=== PATIENT | male | born 1955 | race Caucasian/White ===

== ENCOUNTER 2017-01-12 10:38 | Day surgery (SDC) | payer OTHER ==
[2017-01-08 11:10] VITALS: BMI 30.2
[~2017-01-12 10:38] MED LIST: LACTATED RINGERS 1,000 ML IV SCH; LIDOCAINE 1% 20 ML VIAL (10MG/ML) FOR IV START INTRADERMA PRN
[2017-01-12 10:50] VITALS: TEMP 97.2
[2017-01-12 10:56] LABS: Glucose,Whole Blood 112 mg/dL (75-99)
[2017-01-12] MEDS ORDERED: LIDOCAINE 1% INJ 10MG/ML (20 ML MDV) ONE (11:23)
[2017-01-12] MEDS ORDERED: GLYCOPYRROLATE 0.2 MG/ML 2 ML VIAL ONE (11:23)
[2017-01-12] MEDS ORDERED: PROPOFOL 10 MG/ML 20 ML VIAL IV ONE (11:23)
--- NOTE | 2017-01-12 11:39 | P.GSHP ---
History of Present Illness H&P Date: 01/12/17 Chief Complaint: GI bleed This a 61-year-old male who presents today for colonoscopy. He's had issues with rectal bleeding. He has a history of hemorrhoids. Past Medical History Past Medical History: Hyperlipidemia, Hypertension Additional Past Medical History / Comment(s): CHRONIC BACK PAIN, Ankylosing spondylosis History of Any Multi-Drug Resistant Organisms: None Reported Past Surgical History: Ear Surgery Additional Past Surgical History / Comment(s): umbilical hernia, hiatal hernia. Past Anesthesia/Blood Transfusion Reactions: No Reported Reaction Past Psychological History: No Psychological Hx Reported Smoking Status: Never smoker Past Alcohol Use History: None Reported Past Drug Use History: None Reported - Past Family History Mother Family Medical History: Cancer Medications and Allergies Home Medications Medication Instructions Recorded Confirmed Type Adalimumab [Humira] 40 mg SQ [id number] 01/04/14 01/12/17 History Aspirin 81 mg PO DAILY 01/04/14 01/08/17 History Cholecalciferol [Vitamin D3] 2,000 units PO DAILY 01/04/14 01/12/17 History Gabapentin 800 mg PO TID 01/04/14 01/12/17 History Ibuprofen [Motrin] 800 mg PO Q8HR PRN 01/04/14 01/08/17 History Losartan/Hydrochlorothiazide 1 tab PO DAILY 01/04/14 01/12/17 History [Losartan-Hctz 100-12.5 mg Tab] Metoprolol Tartrate [Lopressor] 1 tab PO BID 01/04/14 01/12/17 History Multivitamin/Iron/Folic Acid 1 tab PO DAILY 01/04/14 01/08/17 History [Centrum Complete Multivit Tab] amLODIPine/ATORVASTATIN [Caduet 10 1 tab PO HS 01/04/14 01/12/17 History mg-80 mg Tablet] Folic Acid 1 mg PO DAILY 02/23/16 01/12/17 History Methotrexate Sodium [Methotrexate] 5 tab PO FR 02/23/16 01/12/17 History Testosterone (Unknown Dose) 1 dose Q21D 01/08/17 01/12/17 History Allergies Allergy/AdvReac Type Severity Reaction Status Date / Time No Known Allergies Allergy Verified 01/12/17 10:47 Surgical - Exam Vital Signs Temp Pulse Resp BP Pulse Ox 97.2 F L 58 L 16 161/92 99 01/12/17 10:49 01/12/17 10:49 01/12/17 10:49 01/12/17 10:49 01/12/17 10:49 - General well developed, no distress - Eyes PERRL - ENT normal pinna - Neck no masses - Respiratory normal expansion - Cardiovascular Rhythm: regular - Abdomen Abdomen: soft, non tender Results - Labs Abnormal Lab Results - Last 24 Hours (Table) 01/12/17 Range/Units 10:53 POC Glucose (mg/dL) 112 H (75-99) mg/dL Assessment and Plan Plan: GI bleed Hemorrhoids We'll perform colonoscopy.
--- NOTE | 2017-01-12 11:55 | P.OP ---
Date of Procedure: 01/12/17 Preoperative Diagnosis: GI bleed Postoperative Diagnosis: Mild internal and external hemorrhoids Procedure(s) Performed: Colonoscopy Implants: Anesthesia: MAC Surgeon: Ted Medina Pathology: none sent Condition: stable Disposition: PACU Indications for Procedure: Operative Findings: Description of Procedure: The patient's placed on the endoscopy table in the lateral position. He received IV sedation. The digital rectal exam was performed which revealed a few internal and external hemorrhoids. The prostate was symmetric without nodules. The flexible colonoscope was then placed patient anus passed throughout the entire colon. The ileocecal valve was visualized. The cecum, ascending colon, transverse colon and descending colon appeared normal. Scope was then brought back the sigmoid colon this appeared normal. Scope was then brought back the rectum and this appeared normal. Scope was then withdrawn through the anus and there were minimal internal and external hemorrhoids noted. Scope was withdrawn for patient.
[2017-01-12 12:01] VITALS: RESP 18
[2017-01-12 12:32] VITALS: BP 131/74; PULSE 66
== END 2017-01-12 12:05 | disposition home or self-care (01) ==
LOC: ORWHC2ENDO 10:38
PROVIDERS: ATTEND Surgery
DX: K64.8 Other hemorrhoids (principal); K64.4 Residual hemorrhoidal skin tags; K92.2 Gastrointestinal hemorrhage, unspecified; I10 Essential (primary) hypertension; E78.5 Hyperlipidemia, unspecified; G89.29 Other chronic pain; M54.9 Dorsalgia, unspecified; M45.9 Ankylosing spondylitis of unspecified sites in spine; Z79.82 Long term (current) use of aspirin; Z79.899 Other long term (current) drug therapy
CPT/HCPCS: 45378; J2001; J2704

== ENCOUNTER → 2018-07-20 | Day surgery (SDC) | payer OTHER ==
[2018-07-18 09:45] VITALS: BMI 30.2
[~2018-07-20] MED LIST changes: +ALPRAZolam 0.25 MG TAB PO PRN; +ALPRAZolam 0.5 MG TAB PO PRN; +ASPIRIN 325 MG TAB PO STA; +ASPIRIN 81 MG PO SCH; +ATORVASTATIN 80 MG TAB PO SCH; +ATORVASTATIN 80 MG TAB PO STA; +CHOLECALCIFEROL 1,000 UNIT TAB PO SCH; +GABAPENTIN 800 MG PO SCH; +HEPARIN SODIUM 1,000 UN/ML (10ML VL) IV ONE; +HEPARIN SODIUM 1,000 UN/ML (10ML VL) ONE; +HUMIRA 40 MG SQ SCH; +IOPAMIDOL-370 125ML BTL INJ ONE; -LACTATED RINGERS 1,000 ML IV SCH; -LIDOCAINE 1% 20 ML VIAL (10MG/ML) FOR IV START INTRADERMA PRN; +LIDOCAINE 1% INJ 10MG/ML (20 ML MDV) ONE; +LIDOCAINE 1% INJ 10MG/ML (20 ML MDV) SQ ONE; +METOPROLOL TARTRATE 50 MG TAB PO SCH; +NITROGLYCERIN SL TABS 0.4 MG TAB SUBLINGUAL PRN; +NON-FORMULARY DRUG (Losartan/Hydrochlorothiazide [Losartan-Hctz 100-12.5 Mg Tab] 1 TAB) PO SCH; +RX INFO: IV CONTRAST WAS GIVEN 1 EACH MISC MISCELLANE PRN; +SODIUM CHLORIDE 0.9% 1,000 ML IV SCH; +SODIUM CHLORIDE 0.9% 1,000 ML in EMPTY BAG 1 BAG IV ONE; +VERAPAMIL 2.5 MG/ML 2 ML AMP ONE; +VERAPAMIL SYRINGE (5 MG/10 ML) IVP ONE; +amLODIPine 10 MG TAB PO SCH; +fentaNYL (PF) 50 MCG/ML 2 ML AMP IVP ONE; +fentaNYL (PF) 50 MCG/ML 2 ML AMP ONE
[2018-07-20 11:25] VITALS: TEMP 97.7
[2018-07-20 15:24] VITALS: RESP 18
[2018-07-20 15:25] VITALS: BP 146/78; PULSE 78
--- NOTE | 2018-07-20 18:42 | CC ---
CARDIAC CATHETERIZATION REPORT Mr. Jacobson is a 63-year-old male with known history of hypertension and hyperlipidemia who has been complaining of dyspnea on exertion. He underwent myocardial perfusion imaging that revealed partial reversible apical and inferior wall defect. In view of that, recommendation was made regarding cardiac catheterization. The procedure, its risks and complications were discussed with the patient, who was in full understanding and agreement. PROCEDURE: Patient was brought to the lab manager in a fasting, semi-sedated state after receiving fentanyl and Benadryl and achieving moderate conscious sedated state. Using Xylocaine anesthesia and Seldinger technique, a 6-Grenadian sheath was introduced in the right radial artery. Selective right and left angiography was performed using 5-Grenadian 3-1/2 Bend right and left Abena catheters. Multiple views were taken of the coronary arteries, including hemiaxial views. Following that, a 5-Grenadian tight pigtail catheter was introduced in the left ventricle and a 30-degree GRIFFITH view of the left ventricle was obtained. Following that, catheter and sheaths were removed. Hemostasis was obtained with deployment of a TR band. There was no immediate complication. Patient was returned to his room in stable condition. Of note, the patient received 5000 units of intravenous heparin as well as intra-arterial verapamil. FINDINGS: FLUOROSCOPY: There was mild calcification involving the left anterior descending artery. LEFT MAIN: This is a short-sized vessel bifurcating into left circumflex, left anterior descending artery. Left main coronary artery has no evidence of high-grade stenosis. LEFT ANTERIOR DESCENDING ARTERY: This is a large-sized vessel reaching toward the apex. It tapers down in the distal third. The left anterior descending artery gives rise to 2 small diagonal branches. Left anterior descending artery and its branches have no evidence of obstructive coronary artery disease. LEFT CIRCUMFLEX: This is a nondominant large vessel giving rise to 4 obtuse marginal branches. The third and fourth obtuse marginal branches are the largest and they have no evidence of high-grade stenosis. RIGHT CORONARY ARTERY: This is a dominant vessel, large in caliber, bifurcating distally into PDA and posterolateral segment and branches. The right coronary artery PDA reaches toward the inferoapical wall. It has mild plaque in the proximal segment of 20%. The rest of the vessel has no high-grade stenosis. LEFT VENTRICULOGRAM: Left ventriculogram was performed in 30-degree GRIFFITH view and revealed a normal left ventricular size and systolic function. Ejection fraction is 60%. There was no significant mitral regurgitation. HEMODYNAMICS: There was no gradient across the aortic valve. The left ventricular end- diastolic pressure was 16-20 mmHg. CONCLUSION: 1. Mildly calcified left anterior descending artery. 2. Mild disease in the right coronary artery in the mid segment. 3. Normal left ventricular size and systolic function. RECOMMENDATION: In view of findings and anatomy, I have recommended continued medical therapy with the aggressive coronary risk modifications that have been initiated. Those findings and recommendation were discussed with the patient and his family, and they are in full understanding and agreement. Duration of procedure was 16 minutes. MMODL / IJN: [id number] /
== END | disposition home or self-care (01) ==
LOC: CATHCVL 10:52
PROVIDERS: ATTEND Internal Medicine Interventional Cardiology
DX: I25.10 Atherosclerotic heart disease of native coronary artery without angina pectoris (principal); E78.2 Mixed hyperlipidemia; I10 Essential (primary) hypertension; Z82.49 Family history of ischemic heart disease and other diseases of the circulatory system; Z79.82 Long term (current) use of aspirin; Z79.899 Other long term (current) drug therapy
CPT/HCPCS: 93458; C1894; C1769; J2001; J3010; J1644; Q9967

== ENCOUNTER → 2019-01-18 | Outpatient (CLI) | payer OTHER ==
--- NOTE | 2019-01-18 10:17 | US ---
EXAMINATION TYPE: US abdomen complete DATE OF EXAM: 01/18/2019 COMPARISON: NONE CLINICAL HISTORY: R74.0 Elevated labs; R53.83 fatigue; M45.9 spondyl. EXAM MEASUREMENTS: Liver Length: 14.9 cm Gallbladder Wall: 0.2 cm CBD: 0.3 cm Spleen: 11.2 cm Right Kidney: 11.9 x 5.3 x 5.4 cm Left Kidney: 11.8 x 4.6 x 5.0 cm Patient of large body habitus carrying most of his weight in a large abdomen. Patient also had severe overlying bowel gas. Technically difficult and limited study. Pancreas: Obscured by bowel gas Liver: limited views, attenuating Gallbladder: cholelithiasis, possible sludge, limited visualization Evidence for sonographic Kimbrough's sign: no CBD: limited visualization Spleen: wnl Right Kidney: lateral hypoechoic nodule measuring 1.2 x 1.0 x 1.1cm Left Kidney: irregular contour Upper IVC: not seen Abd Aorta: seen only mid, mid wnl IMPRESSION: 1. Liver is increased in attenuation correlate for hepatic steatosis, hepatitis or diffuse hepatocell ular disease. 2. Cholelithiasis with gallbladder sludge but no gallbladder wall thickening. 3. Hypoechoic nodule right kidney too small to characterize by ultrasound. 4. there is cortical loss and lobulation of the left kidney correlate for chronic medical renal disea se.
== END | disposition home or self-care (01) ==
LOC: RADUSWWP 09:17
PROVIDERS: ATTEND Family Medicine
DX: R93.2 Abnormal findings on diagnostic imaging of liver and biliary tract (principal); K80.20 Calculus of gallbladder without cholecystitis without obstruction; N28.9 Disorder of kidney and ureter, unspecified; R53.83 Other fatigue; R74.0 Nonspecific elevation of levels of transaminase and lactic acid dehydrogenase [LDH]
CPT/HCPCS: 76700

== ENCOUNTER → 2019-02-21 | Outpatient (CLI) | payer OTHER ==
--- NOTE | 2019-02-21 09:14 | CT ---
EXAMINATION TYPE: CT abdomen w con DATE OF EXAM: 02/21/2019 COMPARISON: Abdominal ultrasound dated 01/18/2019 HISTORY: Left sided flank pain CT DLP: 1349 mGycm Automated exposure control for dose reduction was used. TECHNIQUE: Helical acquisition of images was performed from the lung bases through the top of iliac crest to include entire abdomen. CONTRAST: Performed with Oral Contrast and with IV Contrast, patient injected with 100 mL of Isovue 300. FINDINGS: LUNG BASES: Bibasilar subsegmental dependent atelectasis is present. There is a subsolid pulmonary no dule the right middle lobe measuring 4 mm on image 6. No priors available for comparison to determine stability. LIVER/GB: Hepatic parenchyma is diffusely hypoattenuated in comparison to that of the spleen, most co mmonly seen in hepatic steatosis. This finding limits evaluation for hepatic masses. No gross evidenc e of hepatic mass is seen. No intrahepatic biliary ductal dilatation. Cholelithiasis is present. PANCREAS: No significant abnormality is seen. SPLEEN: No significant abnormality is seen. ADRENALS: No significant abnormality is seen. KIDNEYS: There is a lobulated contour of both kidneys suggestive of prior scarring. Nonobstructing le ft lower pole 5 mm calculus is seen. Hypoattenuated subcentimeter probable left renal cyst is present as well as a 1.2 cm right renal cyst. No hydronephrosis of either kidney. On delayed images punctate to small to accurately characterize bilateral cortical renal lesions are seen. BOWEL: Surgical changes seen of the gastric esophageal junction. Epiploic appendage is seen along th e distal descending colon versus omental infarct. No significant fat stranding at this time. Few scat tered colonic diverticula are present without fat stranding. Appendix appears air-filled and within n ormal limits. No dilated large or small bowel. LYMPH NODES: No greater than 1 cm short axis lymph node is seen in the abdomen or pelvis. OSSEOUS STRUCTURES: Degenerative changes of the spine are moderate. Multiple Schmorl's nodes are pre sent. FREE AIR: No free air is visualized. OTHER: Abdominal aorta is of normal course and caliber. IMPRESSION: 1. EPIPLOIC APPENDAGE VERSUS OMENTAL INFARCT IS SEEN IN THE LEFT LOWER QUADRANT. THIS COULD ACCOUNT F OR THIS PATIENT'S LEFT FLANK PAIN HOWEVER NO CURRENT INFLAMMATORY FAT STRANDING IS PRESENT. 2. HEPATIC STEATOSIS AND CHOLELITHIASIS. NO CT EVIDENCE OF ACUTE CHOLECYSTITIS. 3. FEW SCATTERED COLONIC DIVERTICULA. 4. NONOBSTRUCTING LEFT LOWER POLE RENAL CALCULUS, RIGHT RENAL CYST, AND BILATERAL SUBCENTIMETER RENAL LESIONS THAT ARE TOO SMALL TO ACCURATELY CHARACTERIZE. 5. SUBSOLID 4 MM RIGHT LOWER LOBE PULMONARY NODULE. UTILIZED TO FURTHER ASSESS THE ENTIRETY OF THE TH ORAX.
== END | disposition home or self-care (01) ==
LOC: RADCTMAIN 07:44
PROVIDERS: ATTEND Family Medicine
DX: K76.0 Fatty (change of) liver, not elsewhere classified (principal); N20.0 Calculus of kidney; N28.1 Cyst of kidney, acquired; N28.9 Disorder of kidney and ureter, unspecified; K80.20 Calculus of gallbladder without cholecystitis without obstruction
CPT/HCPCS: 74160; Q9967

== ENCOUNTER → 2019-03-10 | Outpatient (CLI) | payer OTHER ==
--- NOTE | 2019-03-10 11:19 | CT ---
EXAMINATION TYPE: CT chest w con DATE OF EXAM: 03/10/2019 COMPARISON: CT abdomen 02/21/2019 HISTORY: Solitary pulmonary nodule CT DLP: 901 mGycm Automated exposure control for dose reduction was used. CONTRAST: CT scan of the chest is performed with IV Contrast, patient injected with 100 ml mL of Isovue 300. FINDINGS: LUNGS: The previously identified right middle lobe nodule measuring approximately 4 mm on axial image 33 is again noted. There are dependent atelectatic changes. No pleural effusion. No endobronchial le melany. No additional lung nodule. MEDIASTINUM: There are no greater than 1 cm hilar or mediastinal lymph nodes. No pericardial effusi on is seen. There is some mild coronary artery calcification AORTA: No additional significant abnormality is seen. The celiac axis shows luminal plaque proximall y, there is associated stenosis of the celiac axis. OTHER: Old posterior left rib fracture appears healed at the 10th rib on the left, there is callus f ormation. Liver shows low attenuation consistent with hepatic steatosis. Dependent foci of high atten uation in the gallbladder likely represent stones. Dense diverticulum associated with the colon. Post op changes are suspected at the gastroesophageal junction level, correlate with appropriate surgical history. IMPRESSION: Pulmonary nodule is confirmed, follow-up in 6-12 months is suggested. Cholelithiasis. Pr obable luminal plaque at the origin of the celiac axis with associated stenosis. Additional findings above.
== END | disposition home or self-care (01) ==
LOC: RADCTMAIN 06:58
PROVIDERS: ATTEND Family Medicine
DX: R91.1 Solitary pulmonary nodule (principal); I25.10 Atherosclerotic heart disease of native coronary artery without angina pectoris
CPT/HCPCS: 71260; Q9967

== ENCOUNTER → 2019-04-13 | Outpatient (CLI) | payer OTHER | END | disposition home or self-care (01) | LOC: CPPFTMAIN 07:29 | PROVIDERS: ATTEND Internal Medicine Critical Care Medicine | DX: I99.8 Other disorder of circulatory system (principal); R91.8 Other nonspecific abnormal finding of lung field | CPT/HCPCS: 94060; 94726; 94729 ==

== ENCOUNTER → 2020-04-15 | Outpatient (CLI) | payer OTHER ==
--- NOTE | 2020-04-15 12:24 | CT ---
EXAMINATION TYPE: CT chest w con DATE OF EXAM: 04/15/2020 COMPARISON: March 10, 2019 HISTORY: Pulmonary nodule CT DLP: 576.5 mGycm Automated exposure control for dose reduction was used. CONTRAST: CT scan of the chest is performed with IV Contrast, patient injected with 100 mL of Isovue 300. FINDINGS: LUNGS: Stable 4 mm right middle lobe pulmonary nodule is unchanged. No new pulmonary nodules seen. Matt bpleural fibrosis noted at the lung bases. MEDIASTINUM: There are no greater than 1 cm hilar or mediastinal lymph nodes. No pericardial effusi on is seen. Thoracic aorta is of normal caliber. The heart is enlarged. UPPER ABDOMEN: No significant abnormality appreciated. OTHER: No additional significant abnormality is seen. IMPRESSION: 1. Stable right middle lobe pulmonary nodule. Stability over a two-year timeframe should be documente d radiographically. Follow-up study in one year.
== END | disposition home or self-care (01) ==
LOC: RADCTMAIN 11:00
PROVIDERS: ATTEND Internal Medicine Critical Care Medicine
DX: R91.1 Solitary pulmonary nodule (principal)
CPT/HCPCS: 71260; Q9967

== ENCOUNTER → 2020-05-17 | Outpatient (CLI) | payer OTHER ==
[2020-05-17 12:51] LABS: HCT 54.6 % (39.0-53.0); HGB 17.9 gm/dL (13.0-17.5); MCH 31.8 pg (25.0-35.0); MCHC 32.8 g/dL (31.0-37.0); Mean Platelet Volume 7.9; Platelet Count 225 k/uL (150-450); RBC 5.63 m/uL (4.30-5.90); RDW 12.2 % (11.5-15.5); WBC 9.5 k/uL (3.8-10.6)
[2020-05-17 13:07] LABS: ALT 73 U/L (4-49); AST 59 U/L (17-59); African American GFR (CKD) >90 (>60 ml/min/1.73 sqM); Albumin 4.1 g/dL (3.5-5.0); Alkaline Phosphatase 60 U/L (38-126); Anion Gap 5 mmol/L; Blood Urea Nitrogen 18 mg/dL (9-20); Carbon Dioxide 28 mmol/L (22-30); Chloride 107 mmol/L (98-107); Glucose 79 mg/dL (74-99); Non-African American GFR(CKD) 80 (>60 ml/min/1.73 sqM); Potassium 4.6 mmol/L (3.5-5.1); Sodium 140 mmol/L (137-145); Total Bilirubin 1.1 mg/dL (0.2-1.3); Total Protein 7.3 g/dL (6.3-8.2)
[2020-05-17 13:10] LABS: Partial Thromboplastin Time 23.2 sec (22.0-30.0)
== END | disposition home or self-care (01) ==
LOC: LABPAT 11:44
PROVIDERS: ATTEND Orthopaedic Surgery
DX: Z01.818 Encounter for other preprocedural examination (principal); M17.12 Unilateral primary osteoarthritis, left knee; Z01.812 Encounter for preprocedural laboratory examination
CPT/HCPCS: 36415; 80053; 85027; 85610; 85730; 87070

== ENCOUNTER 2020-06-10 10:56 | Day surgery (SDC) | payer OTHER ==
[2020-06-07 10:22] VITALS: BMI 32.1
[~2020-06-10 10:56] MED LIST changes: +ACETAMINOPHEN TAB 500 MG TAB PO ONE; -ALPRAZolam 0.25 MG TAB PO PRN; -ALPRAZolam 0.5 MG TAB PO PRN; -ASPIRIN 325 MG TAB PO STA; -ASPIRIN 81 MG PO SCH; -ATORVASTATIN 80 MG TAB PO SCH; -ATORVASTATIN 80 MG TAB PO STA; -CHOLECALCIFEROL 1,000 UNIT TAB PO SCH; +DEXAMETHASONE SOD PHOSPHATE 4 MG/ML 1 ML VIAL IV ONE; +GABAPENTIN 300 MG CAP PO ONE; -GABAPENTIN 800 MG PO SCH; -HEPARIN SODIUM 1,000 UN/ML (10ML VL) IV ONE; -HEPARIN SODIUM 1,000 UN/ML (10ML VL) ONE; -HUMIRA 40 MG SQ SCH; +HYDROmorphone 0.5 MG/0.5 ML SYRINGE IVP PRN; -IOPAMIDOL-370 125ML BTL INJ ONE; -LIDOCAINE 1% INJ 10MG/ML (20 ML MDV) ONE; -LIDOCAINE 1% INJ 10MG/ML (20 ML MDV) SQ ONE; +MELOXICAM 7.5 MG TAB PO ONE; -METOPROLOL TARTRATE 50 MG TAB PO SCH; +MIDAZOLAM 2 MG/2 ML VIAL IV PRN; -NITROGLYCERIN SL TABS 0.4 MG TAB SUBLINGUAL PRN; -NON-FORMULARY DRUG (Losartan/Hydrochlorothiazide [Losartan-Hctz 100-12.5 Mg Tab] 1 TAB) PO SCH; +ONDANSETRON 4 MG/2 ML VIAL IVP ONE; +ROPIVACAINE 246.25 MG, EPINEPHrine 0.5 MG, KETOROLAC 30 MG, cloNIDine HCL/PF 80 MCG, WA... MISCELLANE ONE; -RX INFO: IV CONTRAST WAS GIVEN 1 EACH MISC MISCELLANE PRN; +SCOPOLAMINE 1.5MG/72HR PATCH TRANSDERM ONE; -SODIUM CHLORIDE 0.9% 1,000 ML IV SCH; -SODIUM CHLORIDE 0.9% 1,000 ML in EMPTY BAG 1 BAG IV ONE; +TRANEXAMIC ACID 1,000 MG in SODIUM CHLORIDE 0.9% 100 ML IVPB ONE; -VERAPAMIL 2.5 MG/ML 2 ML AMP ONE; -VERAPAMIL SYRINGE (5 MG/10 ML) IVP ONE; -amLODIPine 10 MG TAB PO SCH; -fentaNYL (PF) 50 MCG/ML 2 ML AMP IVP ONE; -fentaNYL (PF) 50 MCG/ML 2 ML AMP ONE
[2020-06-10] MEDS: LACTATED RINGERS 1,000 ML IV SCH (11:30)
[2020-06-10] MEDS ORDERED: LIDOCAINE 1% (10MG/ML) FOR IV START INTRADERMA ONE (11:31)
[2020-06-10] MEDS ORDERED: MIDAZOLAM 2 MG/2 ML VIAL IVP ONE (12:06)
[2020-06-10] MEDS ORDERED: fentaNYL (PF) 50 MCG/ML 2 ML AMP IVP ONE (12:06)
[2020-06-10] MEDS ORDERED: NA PHOS,M-B/NA PHOS,DI-BA 133 ML ENEMA RECTAL PRN (12:35)
[2020-06-10] MEDS ORDERED: hydrOXYzine pamoate 25 MG CAP PO PRN (12:35)
[2020-06-10] MEDS ORDERED: bisacodyL 10 MG SUPP RECTAL PRN (12:35)
[2020-06-10] MEDS ORDERED: HYDROcodone/APAP 5-325MG 1 EACH TAB PO PRN (12:35)
[2020-06-10] MEDS ORDERED: diazePAM 5 MG TAB PO PRN (12:35)
[2020-06-10] MEDS ORDERED: ONDANSETRON 4 MG/2 ML VIAL IVP PRN (12:35)
[2020-06-10] MEDS ORDERED: NALOXONE 0.4 MG/ML 1 ML VIAL IV PRN (12:35)
[2020-06-10] MEDS ORDERED: MAGNESIUM HYDROXIDE 2,400 MG/10 ML CUP PO PRN (12:35)
[2020-06-10] MEDS ORDERED: HYDROmorphone 1 MG/ML 1 ML SYRINGE IVP PRN (12:35)
[2020-06-10] MEDS ORDERED: HYDROmorphone 0.5 MG/0.5 ML SYRINGE IVP PRN ×2 (12:35)
--- NOTE | 2020-06-10 12:38 | P.ANPRN ---
Procedure Note - Anesthesia - Nerve Block Performed Left Adductor Canal Infusion Time Out Performed: Yes (1205) Date of Procedure: 06/10/20 Procedure Start Time: 12:06 Procedure Stop Time: 12:12 Location of Patient: PreOp Indication: Acute Post-Operative Pain, Requested by Surgeon Specifically requested for management of pain by DrColumba: Eliu Crespo Sedation Type: Sedate with meaningful contact maintained Preparation: Sterile Prep Position: Supine Catheter Depth at Skin (cm): 8 Catheter: Indwelling Needle Types: Pajunk Needle Gauge: 21 Ultrasound used to visualize needle placement: Yes Ultrasound used to observe medication spread: Yes Injectate: 0.5% Ropivacaine (see comment for volume) (20cc) Blood Aspirated: No Pain Paresthesia on Injection Noted: No Resistance on Injection: Normal Image Stored and Saved: Yes Events: Uneventful and Well Tolerated
[2020-06-10] MEDS ORDERED: TRANEXAMIC ACID 1,000 MG/10 ML VIAL ONE (13:04)
[2020-06-10] MEDS ORDERED: PROPOFOL 10 MG/ML 20 ML VIAL IV ONE (13:04)
[2020-06-10] MEDS ORDERED: MIDAZOLAM 2 MG/2 ML VIAL ONE (13:04)
[2020-06-10] MEDS ORDERED: SODIUM CHLORIDE 0.9% 100 ML BAG ONE (13:04)
[2020-06-10] MEDS ORDERED: fentaNYL (PF) 50 MCG/ML 2 ML AMP ONE (13:04)
[2020-06-10] MEDS ORDERED: ceFAZolin 3,000 MG in SODIUM CHLORIDE 0.9% IRRIGATIO 3,000 ML IRRIGATION ONE (13:09)
[2020-06-10] MEDS ORDERED: LACTATED RINGERS 1,000 ML IV ONE (14:37)
--- NOTE | 2020-06-10 14:47 | P.OP ---
Date of Procedure: 06/10/20 Preoperative Diagnosis: Severe osteoarthritis left knee Postoperative Diagnosis: Severe osteoarthritis left knee Procedure(s) Performed: Left total knee arthroplasty using [employer] patient specific guides Implants: Chowdary and Nephew Cruciate Retaining Journey II CR Oxinium Femoral Component size 8, left Chowdary & Nephew Journey Nonporous Tibial Baseplate size 6, left Chowdary [employer] Nephew Journey II CR, XLPE Articular Insert, 9 mm, size 5-6 Chowdary & Nephew Mary II Resurfacing Patellar Component, Oval, 35 mm All components were cemented using Palacose R bone cement. Visionaire patient specific guides The articulation is Oxinium on polyethylene. Anesthesia: spinal Surgeon: Eliu Crespo Refrigeration Mechanic Helper #1: Nadia Martin Estimated Blood Loss (ml): 50 Pathology: other (Bone and cartilage) Condition: stable Disposition: PACU Indications for Procedure: After failure of conservative treatment we discussed the surgical and nonsurgical treatment options at length. Patient wishes to proceed with a total knee arthroplasty. Complications specific to this procedure were discussed at length, including but not limited to infection, bleeding, stiffness, and nerve injury. Covid-19 was also discussed at length with the patient, and they are aware of the current policies and procedures. The patient was given the option of delaying surgery, but they elect to proceed knowing these risks. Patient is aware of all these complications and informed consent was obtained Operative Findings: The operative findings are consistent with severe osteoarthritis of the left knee Description of Procedure: Patient was seen in the preoperative area consent was reviewed and operative site was marked with a skin marker. An adductor canal pain catheter was placed by anesthesia in the preoperative area. Patient was then brought to the operating room and given preoperative antibiotics intravenously. A spinal anesthetic was administered by the anesthesia department. A tourniquet was placed on the upper thigh and the lower extremity was prepped and draped in usual sterile fashion. A gram of transexamic acid was given. A universal timeout was then performed which confirmed the patient's name, surgical site, ALLERGIES, and consent. The lower extremity was then exsanguinated and tourniquet was inflated to 250 mmHg. A standard and anterior midline approach to the knee was performed. The skin and subcutaneous tissue was dissected down to the patellar tendon. A medial parapatellar arthrotomy was then performed. The knee was then extended, the patellar was everted, and the knee was again flexed. Anterior horns of both menisci were excised, and a release was performed to the posterior medial aspect of the knee. On gross visual inspection, there was complete loss of articular cartilage in the medial and patellofemoral joint spaces. There was also significant cartilage damage in the lateral compartment. There were multiple periarticular osteophytes. The patient specific guide was placed on the distal femur, and pinned in place. Using the patient specific guide, the distal femoral cut was performed. The cutting block was then removed and the cut was checked for flatness. The appropriate 5-in-1 cutting block was then pinned in place through the holes that were drilled through the patient specific guide. The anterior condyles were cut without notching. The posterior and chamfer cuts were performed while protecting the collateral ligaments. The cutting block was then removed. Attention was then directed to the tibia. The remaining ACL was removed with a Ronguer, and the tibia was then gently subluxed forward with a large bent knee retractor. Any remaining menisci was excised. The posterior lateral corner was cauterized in order to cauterize the lateral geniculate artery. The patient specific guide for the tibia was then placed and was held in place with pins. Pinholes were then placed for rotation of the tibial component as well. Proximal tibia was then cut and sized. Next trials were then placed with the appropriate-sized insert. The knee was able to fully extend and flex to 130 and was stable throughout all range of motion. The knee was then extended, patella everted. Patella was then measured, and then using an osteotomy guide, the patella was cut at the appropriate level. The patella was then measured and drilled and the patella trial was then placed. The knee was then taken through range of motion with the patella trial and the patella tracked normally. The knee was then extended patella trial was then removed and the patella was everted. Knee was then flexed and lug holes were drilled through the femoral trial and the femoral trial was then removed. The tibial was then exposed, and the tibial broach guide was then pinned in place after it was set for the appropriate rotation to allow for the most coverage without overhang. The tibia was then reamed and broached. The cut surfaces of bone were then irrigated with pulsatile lavage. The posterior structures were injected with the ropivacaine solution. The knee was also irrigated with Irrisept solution. The components were then opened, the cement was mixed, and the components were then cemented in place. The cement was allowed to harden with the knee in full extension. While the cement was hardening, the remaining soft tissues were then injected with a ropivacaine solution, which consisted of 246.25 mg of ropivacaine, 0.5 mg of epinephrine, 30 mg of Toradol, 80 g of clonidine, and 48.45 mL of sterile water, for a total of 100 mL of fluid injected. After the cemented hardened. The tourniquet was released, and hemostasis was obtained. A second gram of transexamic acid was given. The knee was again irrigated. The knee was again taken through range of motion and found to be stable throughout all range of motion of 0-130, and the patella tracked normally. The fascia was then closed with #2 strata fix suture. The subcutaneous tissue was closed with 3-0 Vicryl and 3-0 strata fix. Dermabond glue was used for the skin and placed with the knee in flexion. The patient was placed in a sterile silver dressing. Patient was then transferred to recovery room in stable condition. The music library assistant MEREDITH Mejia was required due the complexity surgery and the need for a skilled certified surgical technologist. She assisted in positioning, draping, retraction, and closure of the wound.
--- NOTE | 2020-06-10 15:26 | XR ---
Limited left knee HISTORY: Postop Frontal and lateral views of the left knee Patient is status post left knee arthroplasty. There is anatomic alignment. Lucency is present in the soft tissues. IMPRESSION: Orthopedic follow-up.
[2020-06-10] MEDS ORDERED: ROPIVACAINE 0.2%-NS ON-Q PUMP 1,090 MG, EMPTY PAIN BALL 1 EACH MISCELLANE PRN (15:37)
[2020-06-10] MEDS: SODIUM CHLORIDE 0.9% 1,000 ML IV SCH (18:16)
[2020-06-10] MEDS: METOPROLOL TARTRATE 50 MG TAB PO SCH (20:49)
[2020-06-10] MEDS: ASPIRIN 325 MG TAB PO SCH (20:49)
[2020-06-10] MEDS: GABAPENTIN 400 MG CAP PO SCH (20:49)
[2020-06-10] MEDS: HYDROcodone/APAP 5-325MG 1 EACH TAB PO PRN (20:49)
[2020-06-10] MEDS: PANTOPRAZOLE 40 MG TABLET PO SCH (20:51)
[2020-06-10] MEDS ORDERED: SENNOSIDES-DOCUSATE SODIUM 1 EACH TAB PO SCH (21:00)
[2020-06-10] MEDS ORDERED: TAMSULOSIN 0.4 MG CAP.ER.24H PO SCH (21:00)
[2020-06-10] MEDS ORDERED: ATORVASTATIN 80 MG TAB PO SCH (21:00)
[2020-06-10] MEDS ORDERED: amLODIPine 10 MG TAB PO SCH (21:00)
[2020-06-11] MEDS: SODIUM CHLORIDE 0.9% 1,000 ML IV SCH (04:27)
[2020-06-11] MEDS: LACTATED RINGERS 1,000 ML IV SCH (04:27)
[2020-06-11] MEDS: HYDROcodone/APAP 5-325MG 1 EACH TAB PO PRN (05:13)
--- NOTE | 2020-06-11 06:46 | CONS ---
CONSULTATION DATE OF SERVICE: 06/10/2020 REASON FOR CONSULTATION: Advice regarding hypertension and other multiple medical issues requested by Dr. Crespo. HISTORY OF PRESENT ILLNESS: This 64-year-old gentleman with a past medical history of hypertension, hyperlipidemia, history of DJD, history of prostate disorder, rheumatoid arthritis being followed by Dr. Ahmadi in the outpatient setting was admitted after after left total knee arthroplasty. There is no history of fever or rigors. No history of headache, loss of consciousness, chest pain, palpitation at this time. PAST MEDICAL HISTORY: History of hypertension, hyperlipidemia, history of DJD, history of prostate disorder, rheumatoid arthritis. MEDICATIONS: Home medications are: Norvasc 10 mg at bedtime, testosterone, Flomax multivitamin, ibuprofen, hydrocodone, gabapentin, vitamin D3, Lipitor, aspirin, Humira, Lopressor. FAMILY HISTORY: History of cancer in the family. SOCIAL HISTORY: No history of smoking. No history of alcohol intake. REVIEW OF SYSTEMS: ENT: No diminished hearing, no diminished vision. CARDIOVASCULAR SYSTEM: No angina. RESPIRATORY SYSTEM: No cough or hemoptysis. GI: No nausea, vomiting. : No dysuria. NERVOUS SYSTEM: No numbness or weakness. ALLERGY/IMMUNOLOGY: No asthma or hayfever. MUSCULOSKELETAL: As mentioned earlier. HEMATOLOGY/ONCOLOGY: No history of anemia. ENDOCRINE: No history of diabetes or hypothyroidism. CONSTITUTIONAL: As mentioned earlier. DERMATOLOGY: Negative. RHEUMATOLOGY: Negative. PSYCHIATRY: As mentioned earlier. PHYSICAL EXAMINATION: The patient is alert and oriented x3. The pulse is 72, blood pressure 117/69, respiration 18, temperature 98 degrees, pulse ox 93% on 2 L. HEENT: Conjunctivae normal. Oral mucosa moist. NECK: No jugular venous distention. No carotid bruit. No lymph node enlargement. CARDIOVASCULAR: S1, S2 muffled. RESPIRATORY: Breath sounds diminished at the bases. No rhonchi, no crackles. ABDOMEN: Soft, nontender. LEGS: Status post left total knee arthroplasty. NERVOUS SYSTEM: Higher function as mentioned earlier. Moves all 4 limbs. No focal deficits. LYMPHATICS: No lymphadenopathy of the neck, axillae or groin. SKIN: No ulcer, rash or bleeding. JOINTS: No active deforming arthropathy. LABS: CBC with hemoglobin 17.9. Chemistries within normal limits, recent chemistry done outpatient. AST was 73. ASSESSMENT: 1. Status post total left knee joint arthroplasty. 2. History of hypertension. 3. Hyperlipidemia. 4. History of increased AST recently. 5. Degenerative joint disease. 6. Prostate disorder. 7. Rheumatoid arthritis. 8. Chronic back pain. 9. History of ankylosing spondylitis. 10.History of cardiac catheterization. 11.FULL CODE. RECOMMENDATIONS AND DISCUSSION: This 64-year-old gentleman who presented with multiple medical issues, at this time I recommend to continue the current medications, continue symptomatic treatment. I recommend resume the home medications, DVT prophylaxis, incentive spirometry. Otherwise, I would also recommend follow up with primary physician closely. AST may be monitored as an outpatient. We will follow the patient closely. Thank you Dr. Crespo for letting us participate in the care of this patient. HUGH / JAQUELIN: [id number] /
[2020-06-11 07:47] VITALS: BP 166/65; PULSE 77; RESP 22; TEMP 97.5
--- NOTE | 2020-06-11 08:10 | P.PN ---
Progress Note - Text The patient is status post left adductor canal catheter placement. The catheter was placed for postoperative pain control, status post total left arthroplasty. Ropivacaine 0.2% is infusing at 8 mLs per hour. The patient has no complaints of left lower extremity numbness or weakness. Patient's VAS score is 4-5 -10. Assessment: Patient's adductor canal catheter is in place and working appropriately. Plan: continue infusion and adjust it as needed.
[2020-06-11] MEDS ORDERED: MULTIVITAMINS, THERA 1 EACH TAB PO SCH (09:00)
[2020-06-11] MEDS ORDERED: LOSARTAN 50 MG TAB PO SCH (09:00)
[2020-06-11] MEDS ORDERED: MELOXICAM 7.5 MG TAB PO SCH (09:00)
[2020-06-11] MEDS ORDERED: CHOLECALCIFEROL 1,000 UNIT TAB PO SCH (09:00)
[2020-06-11] MEDS ORDERED: hydroCHLOROthiazide 12.5 MG CAP PO SCH (09:00)
[2020-06-11] MEDS: METOPROLOL TARTRATE 50 MG TAB PO SCH (09:02)
[2020-06-11] MEDS: PANTOPRAZOLE 40 MG TABLET PO SCH (09:02)
[2020-06-11] MEDS: ASPIRIN 325 MG TAB PO SCH (09:03)
[2020-06-11] MEDS: GABAPENTIN 400 MG CAP PO SCH (09:04)
[2020-06-11 10:00] LABS: Basophils # (A) 0.1 k/uL (0-0.2); Basophils % (A) 0 %; Eosinophils % (A) 0 %; HCT 47.9 % (39.0-53.0); Lymphocytes # (A) 1.8 k/uL (1.0-4.8); Lymphocytes % (A) 9 %; MCH 31.9 pg (25.0-35.0); MCHC 33.4 g/dL (31.0-37.0); MCV 95.4 fL (80.0-100.0); Mean Platelet Volume 9.1; Monocytes % (A) 5 %; Neutrophils # (A) 15.6 k/uL (1.3-7.7); Neutrophils % (A) 84 %; Platelet Count 218 k/uL (150-450); RBC 5.02 m/uL (4.30-5.90); RDW 12.4 % (11.5-15.5); WBC 18.7 k/uL (3.8-10.6)
--- NOTE | 2020-06-11 11:11 | P.DS ---
Providers Expected date of discharge: 06/11/20 Attending physician: Eliu Crespo Consults: 06/10/20 12:35 Consult Physician Routine Consulting Provider: Eliu Ahmadi Consult Reason/Comments: medical management Do you want consulting provider notified?: Yes Primary care physician: Eliu Ahmadi - Discharge Diagnosis(es) (1) Osteoarthritis of left knee Status: Acute (2) S/P total knee arthroplasty Status: Acute Hospital Course: This is a 64-year-old male with known history of degenerative arthritis of the left knee. The patient presented for evaluation as an outpatient. After discussion and consideration patient elects to proceed with total knee arthroplasty. The patient is seen preoperatively by Dr. Crespo and medically cleared for surgery by their primary care physician. Patient is admitted to [facility] on 06/10/2020 for total knee arthroplasty. The procedure is performed without complication or sequelae. The patient is doing well postoperatively. Labs and vital signs are stable on day of discharge. On day of discharge patient's knee incision is healing well. There is minimal erythema. There is no drainage noted at this time. There is minimal soft tissue swelling to the knee. Patient has full foot and ankle motion without difficulty or pain. Calf is soft and nontender to palpation. Neurovascular status to the left lower extremity is intact. Patient is discharged home in good condition. Opioid start talking form is reviewed and signed. Please see med rec for accurate list of home medications. Patient Condition at Discharge: Good Plan - Discharge Summary Discharge Rx Participant: Yes New Discharge Prescriptions: New Aspirin 325 mg PO BID #60 tab Ibuprofen [Motrin] 800 mg PO TID PRN #90 tab PRN Reason: Pain HYDROcodone/APAP 5-325MG [[place] 5-325] 1 - 2 tab PO Q6HR PRN #48 tab PRN Reason: Pain Sennosides [Senokot] 2 tab PO DAILY PRN #60 tablet PRN Reason: Constipation No Action Aspirin 81 mg PO HS Adalimumab [Humira] 40 mg SQ [id number] Ibuprofen [Motrin] 800 mg PO Q8HR PRN PRN Reason: Pain Multivitamin/Iron/Folic Acid [Centrum Complete Multivit Tab] 1 tab PO DAILY Metoprolol Tartrate [Lopressor] 50 mg PO BID Losartan/Hydrochlorothiazide [Losartan-Hctz 100-12.5 mg Tab] 1 tab PO DAILY Gabapentin 800 mg PO TID Cholecalciferol [Vitamin D3] 2,000 units PO DAILY Hydrocodone/Acetaminophen [[place] 5-325] 1 each PO Q6HR PRN #20 tab PRN Reason: Pain Testosterone (Unknown Dose) 1 dose IJ Q21D amLODIPine BESYLATE [Norvasc] 10 mg PO HS Atorvastatin [Lipitor] 80 mg PO HS Tamsulosin [Flomax] 0.4 mg PO HS Discharge Medication List Adalimumab [Humira] 40 mg SQ [id number] 01/04/14 [History] Aspirin 81 mg PO HS 01/04/14 [History] Cholecalciferol [Vitamin D3] 2,000 units PO DAILY 01/04/14 [History] Gabapentin 800 mg PO TID 01/04/14 [History] Ibuprofen [Motrin] 800 mg PO Q8HR PRN 01/04/14 [History] Losartan/Hydrochlorothiazide [Losartan-Hctz 100-12.5 mg Tab] 1 tab PO DAILY 01/04/14 [History] Metoprolol Tartrate [Lopressor] 50 mg PO BID 01/04/14 [History] Multivitamin/Iron/Folic Acid [[place] Complete Multivit Tab] 1 tab PO DAILY 01/04/14 [History] Hydrocodone/Acetaminophen [[place] 5-325] 1 each PO Q6HR PRN #20 tab 02/23/16 [Rx] Testosterone (Unknown Dose) 1 dose IJ Q21D 01/08/17 [History] Atorvastatin [Lipitor] 80 mg PO HS 07/18/18 [History] amLODIPine BESYLATE [Norvasc] 10 mg PO HS 07/18/18 [History] Tamsulosin [Flomax] 0.4 mg PO HS 06/07/20 [History] Aspirin 325 mg PO BID #60 tab 06/11/20 [Rx] HYDROcodone/APAP 5-325MG [[place] 5-325] 1 - 2 tab PO Q6HR PRN #48 tab 06/11/20 [Rx] Ibuprofen [Motrin] 800 mg PO TID PRN #90 tab 06/11/20 [Rx] Sennosides [Senokot] 2 tab PO DAILY PRN #60 tablet 06/11/20 [Rx] Follow up Appointment(s)/Referral(s): [facility] [NON-STAFF] - As Needed (Supplier of CPM) [facility], [NON-STAFF] - 06/12/20 Eliu Crespo DO [Doctor of Osteopathic Medicine] - 06/26/20 2:00 pm Eliu Ahmadi DO [Primary Care Provider] - 06/18/20 10:20 am Ambulatory/Diagnostic Orders: Continuous Passive Motion (CPM) Machine [DME.AMB1] Time Frame: 3 Weeks, Location: None Selected Patient Instructions/Handouts: *Surgery [facility] - On-Q Pain Pump Discharge Instructions, Knee Replacement (DC) Activity/Diet/Wound Care/Special Instructions: Weightbearing as tolerated with a walker. CPM 5-6h daily. Leave dressing intact. May be removed by home care nurse or by patient in 10 days. May shower with dressing on. Recommend use of compression stockings daily until follow up to help prevent swelling and blood clots. May remove at night before sleeping. Please take aspirin 325mg twice daily for 30 days to prevent blood clots. Please follow up with [facility] and call with any questions or concerns, . Discharge Disposition: HOME WITH HOME HEALTH SERVICES
--- NOTE | 2020-06-11 23:16 | PN ---
PROGRESS NOTE DATE OF SERVICE: 06/11/2020 This 64-year-old gentleman who was admitted after left total knee arthroplasty is improving significantly. No chest pain. No palpitations. No fever. PHYSICAL EXAMINATION: Alert and oriented x3. Pulse 77, blood pressure 106/65, respiration 22, temperature 97.5, pulse ox 92% on room air. HEENT: Conjunctivae normal. NECK: No jugular venous distention. CARDIOVASCULAR SYSTEM: S1, S2 muffled. RESPIRATORY SYSTEM: Breath sounds diminished at the bases. No rhonchi. No crackles. ABDOMEN: Soft. LEGS: Status post surgery. NERVOUS SYSTEM: No focal deficit. LABS: WBC 18.7. ASSESSMENT: 1. Status post total left knee arthroplasty. 2. Increased white count, possibly reactive. 3. History of hypertension. 4. Hyperlipidemia. 5. History of increased AST recently. 6. Degenerative joint disease. 7. Prostate disorder history. 8. History of rheumatoid arthritis. 9. History of chronic back pain. 10.History of ankylosing spondylitis. 11.History of cardiac catheterization. 12.FULL CODE. RECOMMENDATIONS AND DISCUSSION: I recommend to continue current medications, continue with the monitoring, symptomatic treatment. The patient is improving significantly. Recommend close followup with the primary physician. Otherwise, repeat labs with the primary physician. The rest of the recommendations per Orthopedic Surgery. MMODL / IJN: [id number] /
== END 2020-06-11 11:01 | disposition home health service (06) ==
LOC: OR 10:56 → 5NMEDONC 17:49 → OR 06-11 11:01
PROVIDERS: ATTEND Orthopaedic Surgery
DX: M17.0 Bilateral primary osteoarthritis of knee (principal); M25.762 Osteophyte, left knee; I10 Essential (primary) hypertension; E29.1 Testicular hypofunction; D84.9 Immunodeficiency, unspecified; K75.81 Nonalcoholic steatohepatitis (NASH); M45.9 Ankylosing spondylitis of unspecified sites in spine; I45.19 Other right bundle-branch block; H91.90 Unspecified hearing loss, unspecified ear; Z98.890 Other specified postprocedural states; Z82.49 Family history of ischemic heart disease and other diseases of the circulatory system; Z79.1 Long term (current) use of non-steroidal anti-inflammatories (NSAID); Z79.4 Long term (current) use of insulin; Z79.899 Other long term (current) drug therapy; Z79.82 Long term (current) use of aspirin; Z87.891 Personal history of nicotine dependence; M06.9 Rheumatoid arthritis, unspecified; Z80.9 Family history of malignant neoplasm, unspecified; G89.29 Other chronic pain; M54.9 Dorsalgia, unspecified; N42.9 Disorder of prostate, unspecified
CPT/HCPCS: 97161; 64448; 76942; 85025; 88300; 73560; 27447; C1713; C1776; J2250; J0171; J1100; J0690 ×3; J2405; J3010; J1885; J2795 ×2; J2704; J0735

== ENCOUNTER → 2020-11-13 | Outpatient (CLI) | payer OTHER ==
--- NOTE | 2020-11-13 16:48 | XR ---
EXAMINATION TYPE: XR chest 2V DATE OF EXAM: 11/13/2020 COMPARISON: CT chest 04/15/2020 HISTORY: Edema, pulmonary nodule TECHNIQUE: Frontal and lateral views of the chest are obtained. FINDINGS: There is no focal air space opacity, pleural effusion, or pneumothorax seen. The cardiac silhouette size is within normal limits. Pulmonary nodule described in prior report is not seen on pl ain film. Patient is rotated. Apical pleural thickening is noted. The osseous structures are intact, there is a spinal curvature. Some mild interstitial prominence noted at the lung bases. There is tho racic spondylosis. IMPRESSION: No acute cardiopulmonary process.
== END | disposition home or self-care (01) ==
LOC: RADXRYALE 16:05
PROVIDERS: ATTEND Physician Assistant Medical
DX: R91.1 Solitary pulmonary nodule (principal); R60.0 Localized edema
CPT/HCPCS: 71046

== ENCOUNTER → 2020-11-21 | Outpatient (CLI) | payer OTHER ==
--- NOTE | 2020-11-21 13:38 | US ---
EXAMINATION TYPE: US venous doppler duplex LE DATE OF EXAM: 11/21/2020 1:04 PM COMPARISON: NONE CLINICAL HISTORY: R60.9 Edema. Edema SIDE PERFORMED: Bilateral TECHNIQUE: The lower extremity deep venous system is examined utilizing real time linear array sonog rahel with graded compression, doppler sonography and color-flow sonography. VESSELS IMAGED: Common Femoral Vein Deep Femoral Vein Greater Saphenous Vein * Femoral Vein Popliteal Vein Small Saphenous Vein * Proximal Calf Veins (* superficial vessels) Right Leg: Negative for DVT Left Leg: Negative for DVT Grayscale, color doppler, spectral doppler imaging performed of the deep veins of the bilateral lower extremities. There is normal flow, compressibility, vascular waveforms. IMPRESSION: No ultrasound evidence for acute DVT in either lower extremity.
== END | disposition home or self-care (01) ==
LOC: RADUSWWP 12:24
PROVIDERS: ATTEND Family Medicine
DX: R60.9 Edema, unspecified (principal)
CPT/HCPCS: 93970

== ENCOUNTER 2021-02-20 22:11 | Emergency (ER) | payer OTHER ==
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
[2021-02-20] MEDS ORDERED: IBUPROFEN 600 MG STARTER PACK 4 TAB BTL PO STA (22:44)
[2021-02-20] MEDS ORDERED: Acetaminophen-Codeine 300-30mg TAB PO STA (22:44)
[2021-02-20] MEDS ORDERED: IBUPROFEN 800 MG TAB PO STA (22:44)
[2021-02-20] MEDS ORDERED: ACET/COD 300 MG/30 MG STARTER PACK 6 TAB BTL PO STA (22:44)
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
[2021-02-21 00:22] VITALS: BP 147/89; PULSE 64; RESP 18; TEMP 97.5
== END 2021-02-21 00:18 | disposition home or self-care (01) ==
LOC: EC 22:11
DX: S16.1XXA Strain of muscle, fascia and tendon at neck level, initial encounter (principal); I10 Essential (primary) hypertension; E78.5 Hyperlipidemia, unspecified; I20.9 Angina pectoris, unspecified; Z79.82 Long term (current) use of aspirin; Z79.899 Other long term (current) drug therapy; V49.40XA Driver injured in collision with unspecified motor vehicles in traffic accident, initial encounter; Y92.410 Unspecified street and highway as the place of occurrence of the external cause
CPT/HCPCS: 70450; 72125; 99284

== ENCOUNTER → 2022-03-30 | Outpatient (CLI) | payer OTHER ==
--- NOTE | 2022-03-30 09:52 | MR ---
EXAMINATION TYPE: MR lumbar spine wo con DATE OF EXAM: 03/30/2022 COMPARISON: CT abdomen 09/14/2018, MRI lumbar spine 03/10/2012. HISTORY: Low back pain into reese lower extremities TECHNIQUE: Multiplanar, multisequence images of the lumbar spine were acquired without IV contrast. FINDINGS: No acute fracture. Multilevel disc desiccation is present. Multilevel Schmorl's nodes with anterior osteophytosis. Lumbar segments are intact. No paraspinal masses are identified. Conus medu llaris has a normal appearance. Left facet joint cyst at L3-L4 and right L5-S1. T1/T2 hyperintense li tal benign vertebral hemangiomas within the L5 and L3 vertebral bodies. T12-L1: No disc herniation or significant spinal canal or neural foraminal stenosis. L1-L2: No disc herniation or significant spinal canal or neural foraminal stenosis. L2-L3: Mild disc bulge with facet hypertrophy. No significant spinal canal or neural foraminal stenos is. L3-L4: Eccentric right disc bulge with facet arthropathy and ligamentum flavum buckling contributing to moderate to severe spinal canal stenosis. The left neural foramen is patent. Moderate right neural foraminal stenosis. L4-L5: Broad-based disc bulge with facet hypertrophy and ligamentum flavum buckling contributing to m ild spinal canal stenosis. Mild bilateral neural foraminal stenosis. L5-S1: Round along its posterior without disc herniation. Facet arthropathy demonstrated. No signific ant spinal canal or neural foraminal stenosis. IMPRESSION: Multilevel degenerative disc disease as described above. This is most prominent at L3-L4 with moderat e to severe spinal canal stenosis.
== END | disposition home or self-care (01) ==
LOC: RADMRIMAIN 08:01
PROVIDERS: ATTEND Physical Medicine & Rehabilitation
DX: M51.36 Other intervertebral disc degeneration, lumbar region (principal); M47.817 Spondylosis without myelopathy or radiculopathy, lumbosacral region; M99.73 Connective tissue and disc stenosis of intervertebral foramina of lumbar region; M48.061 Spinal stenosis, lumbar region without neurogenic claudication
CPT/HCPCS: 72148

== ENCOUNTER → 2023-11-26 | Outpatient (CLI) | payer OTHER ==
--- NOTE | 2023-12-02 09:31 | MR ---
EXAMINATION TYPE: MR shoulder RT wo con DATE OF EXAM: 11/26/2023 COMPARISON: None. HISTORY: Rt shoulder pain with difficulty raising arm overhead for 6 months. TECHNIQUE: Multiplanar, multisequence imaging of the right shoulder is performed without contrast. FINDINGS: Rotator Cuff: Some fluid surrounds the infraspinatus muscle bulk and tendon. Supraspinatus and subsca pularis tendons are grossly intact. Rotator cuff muscle bulk is preserved. Acromioclavicular Joint: Fairly moderate to severe narrowing and moderate superior capsular hypertrop hy. Mild to moderate spurring. Type II downsloping acromion noted. Glenohumeral Joint: Small to moderate-sized joint effusion. Small bony projection inferior medial hum eral head coronal image 14 Labrum: Increased signal superior labrum consistent with tear coronal image 14 Biceps Tendon: The long head of biceps is in normal location within bicipital groove. Increased signa l is noted in the extracapsular portion. Intracapsular portion to the labral anchor is less well seen . Bone marrow signal: Overall heterogeneity suggesting red marrow reconversion. Other: No additional significant abnormality is appreciated. IMPRESSION: 1. Tendinosis/partial tearing of the long head of biceps tendon. 2. Some tendinosis of the infraspinatus tendon. No significant rotator cuff tear. Superior labral tea r noted. 3. Fairly moderate degenerative changes in the shoulder as detailed above.
== END | disposition home or self-care (01) ==
LOC: RADMRIMAIN 08:31
PROVIDERS: ATTEND Orthopaedic Surgery
DX: M67.813 Other specified disorders of tendon, right shoulder (principal); M19.011 Primary osteoarthritis, right shoulder